=== PATIENT | female | born 1995 | race Hispanic/Latino ===

== ENCOUNTER 2024-07-23 02:00 | Inpatient (IN) | payer SELFPAY ==
[2024-07-23] MEDS ORDERED: Nalbuphine 10 MG/1 ML Vial IVPUSH PRN (03:02)
[2024-07-23] MEDS ORDERED: Ondansetron 4 MG/2 ML SDV IVPUSH PRN (03:02)
[2024-07-23] MEDS ORDERED: Calcium Carbonate 500 MG Tab.Chew PO PRN (03:02)
[2024-07-23] MEDS ORDERED: Sodium Chloride 0.9% 10 ML Syringe FLUSH PRN (03:02)
[2024-07-23] MEDS ORDERED: Lidocaine 1% 50 ML MDV INJECT PRN (03:02)
[2024-07-23] MEDS: Lactated Ringers 1,000 ML IV SCH (03:16)
[2024-07-23 03:17] LABS: BASOPHILS PERCENT AUTO 0.4 % (0.0-1.0); EOSINOPHILS PERCENT AUTO 0.3 % (0.0-6.0); HEMATOCRIT 36.6 % (37.0-47.0); HEMOGLOBIN 12.5 gm/dl (12.0-16.0); IMMATURE GRAN ABSOLUTE AUTO 0.03 K/mm3 (0.00-0.05); IMMATURE GRAN PERCENT AUTO 0.3 % (0.0-0.4); LYMPHOCYTES ABSOLUTE AUTO 2.2 K/mm3 (1.0-4.8); LYMPHOCYTES PERCENT AUTO 21.5 % (24.0-44.0); MEAN CORPUSCULAR HGB CONC 34.2 g/dl (32.0-36.0); MEAN CORPUSCULAR VOLUME 87.8 fl (83.0-99.0); MONOCYTES ABSOLUTE AUTO 0.6 K/mm3 (0.0-0.8); NEUTROPHILS ABSOLUTE AUTO 7.5 K/mm3 (1.8-7.7); NEUTROPHILS PERCENT AUTO 71.5 % (41.0-71.0); PLATELET COUNT,PLT 224 K/mm3 (150-400); RED BLOOD CELL COUNT 4.17 M/mm3 (4.10-5.30); WHITE BLOOD CELL COUNT,WBC 10.42 K/mm3 (3.9-11.3)
[2024-07-23] MEDS: Ampicillin 2 GM in Sodium Chloride 0.9% 100 ML IV ONE (03:18)
[2024-07-23] MEDS ORDERED: diphenhydrAMINE 50 MG/ML SDV IVPUSH PRN (03:54)
[2024-07-23] MEDS ORDERED: fentaNYL 100 MCG/2 ML SDV EPIDUR PRN (03:54)
[2024-07-23] MEDS ORDERED: ePHEDrine 50 MG/ML SDV IVPUSH PRN (03:54)
[2024-07-23] MEDS ORDERED: Naloxone 0.4 MG/ML SDV IVPUSH PRN (03:54)
[2024-07-23] MEDS: Bupivacaine/fentaNYL/NS 100 ML Bag EPIDUR PRN (04:34)
[2024-07-23] MEDS: Oxytocin/0.9 % Sodium Chloride 30 UNIT/500 ML BAG IV SCH (05:33)
[2024-07-23] MEDS ORDERED: Acetaminophen 325 MG Tab PO PRN (08:36)
[2024-07-23] MEDS: Ampicillin 1 GM in Sodium Chloride 0.9% 100 ML IV SCH (08:36)
[2024-07-23] MEDS: Ibuprofen 600 MG Tab PO SCH (09:12)
[2024-07-23] MEDS: Benzocaine/Menthol 20%-0.5% Spray 78 GM Cannister TOP PRN (20:36)
[2024-07-23] MEDS: Witch Hazel Medicated Pads 40/Jar TOP PRN (20:36)
[2024-07-24] MEDS: Docusate Sodium 100 MG Cap PO PRN (07:32)
== END 2024-07-24 18:45 | disposition home or self-care (01) | DRG 807 ==
LOC: JD.OBCHECK 02:00 → JD.OB 02:02 → OBSVTOIN 05:32 → JD.OB 05:33
PROVIDERS: ADMIT Obstetrics & Gynecology; ATTEND Obstetrics & Gynecology
PROC: 10E0XZZ Delivery of Products of Conception, External Approach (ICD-10-PCS; principal; 2024-07-23)
PROC: 3E0R3BZ Introduction of Anesthetic Agent into Spinal Canal, Percutaneous Approach (ICD-10-PCS; 2024-07-23)
PROC: 00HU33Z Insertion of Infusion Device into Spinal Canal, Percutaneous Approach (ICD-10-PCS; 2024-07-23)
DX: O42.02 Full-term premature rupture of membranes, onset of labor within 24 hours of rupture (principal); Z37.0 Single live birth; O99.824 Streptococcus B carrier state complicating childbirth; O77.0 Labor and delivery complicated by meconium in amniotic fluid; Z3A.38 38 weeks gestation of pregnancy
CPT/HCPCS: 36415; 59025; 59409; 85025; 86592; 86850; 86900; 86901; A9270-GY; J0290; J3490; J7120; J7999